=== PATIENT | male | born 1990 | race Caucasian/White ===

== ENCOUNTER 2016-11-27 22:44 | Emergency (ER) | payer MEDICAID ==
[~2016-11-27] VITALS: Ht 170.2 cm; Wt 95.0 kg
[2016-11-27 23:00] VITALS: BP 143/72
[2016-11-28] MEDS ORDERED: IBUPROFEN 600MG TABLET PO ONE (00:15)
[2016-11-28] MEDS ORDERED: LIDOCAINE HCL 1% 20ML VIAL (Pyxis) INJ MC ONE (00:15)
[2016-11-28] MEDS ORDERED: TETANUS, DIPHTHERIA, PERTUSSIS VAC/PF 0.5ML (>7YR OLD) IM ONE (00:15)
== END 2016-11-28 02:23 | disposition home or self-care (01) ==
LOC: ER 22:45
DX: L02.512 Cutaneous abscess of left hand (principal)
CPT/HCPCS: 10060; 90471; 90715; 99283; J3490; X7700; Z7610